=== PATIENT | male | born 2000 | race Caucasian/White ===

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

== ENCOUNTER 2020-05-14 21:01 | Emergency (ER) | payer BC, OTHER ==
--- NOTE | 2020-05-14 21:09 | EDM.PDOC ---
ED HPI GENERAL MEDICAL PROBLEM - General Chief Complaint: Abdominal Pain Stated Complaint: FEVER,CHILLS Time Seen by Provider: 05/14/20 21:07 Source of Information: Reports: Patient History Limitations: Reports: No Limitations - History of Present Illness INITIAL COMMENTS - FREE TEXT/NARRATIVE: 19-year-old male presents with nonbloody greenish watery diarrhea since morning, associated with chills, diffuse myalgia, feeling dizzy, nausea, diffuse abdominal discomfort, headache. He denies use of recent antibiotics. He ate at [employer] Saturday evening and started having symptoms the next morning. ROS: A 10-point review of systems, other than pertinent positives and negatives as stated per HPI, is otherwise negative PHYSICAL EXAM General: AOx4, GCS = 15, No distress HEENT: dry mucous membrane Neck: supple, no meningismus, no Kernig or Brudzinski Cardiac: S1S2 RRR Respiratory: CTAB, no crackles or rales, no wheezing Abdomen: Soft, nontender, no rebound or guarding, nondistended, no pulsatile mass. Back: nontender Musculoskeletal: NVI distally, no deformity Neuro: No focal deficits - Related Data Allergies Allergy/AdvReac Type Severity Reaction Status Date / Time cats Allergy Hives Uncoded 05/14/20 21:15 dogs Allergy Hives Uncoded 05/14/20 21:15 Home Meds: Home Meds Melatonin 5 mg PO BEDTIME 09/10/19 [History] Ciprofloxacin [Ciprofloxacin HCl] 500 mg PO BID #14 tab 05/14/20 [Rx] metroNIDAZOLE [Flagyl] 500 mg PO Q8H #21 tab 05/14/20 [Rx] Past Medical History - Past Health History Medical/Surgical History: Denies Medical/Surgical History HEENT History: Reports: None Cardiovascular History: Reports: None Respiratory History: Reports: None Gastrointestinal History: Reports: None Genitourinary History: Reports: None Musculoskeletal History: Reports: None Neurological History: Reports: None Psychiatric History: Reports: None Endocrine/Metabolic History: Reports: None Oncologic (Cancer) History: Reports: None Dermatologic History: Reports: None - Infectious Disease History Infectious Disease History: Reports: None - Past Surgical History HEENT Surgical History: Reports: Naso-Sinus Surgery, Tonsillectomy Social & Family History - Family History Family Medical History: Noncontributory ED ROS GENERAL - Review of Systems Review Of Systems: Comprehensive ROS is negative, except as noted in HPI. ED EXAM, GI/ABD - Physical Exam Exam: See Below (See dictation) Course - Vital Signs Last Recorded V/S: Last Vital Signs Temp 98.6 F 05/14/20 21:02 Pulse 88 05/14/20 23:24 Resp 14 05/14/20 23:24 BP 138/73 05/14/20 23:24 Pulse Ox 98 05/14/20 23:24 - Orders/Labs/Meds Orders: Active Orders 24 hr Category Date Time Status OVA & PARASITES BY IMMUNOASSAY [MREF] Stat Lab 05/14/20 21:27 Ordered Lactated Ringers [Ringers, Lactated] 1,000 ml Med 05/14/20 23:27 Active IV .BOLUS Sodium Chloride 0.9% [Saline Flush] Med 05/14/20 21:23 Active 10 ml FLUSH ASDIRECTED PRN Sodium Chloride 0.9% [Saline Flush] Med 05/14/20 21:23 Active 2.5 ml FLUSH ASDIRECTED PRN Saline Lock Insert [OM.PC] Stat Oth 05/14/20 21:23 Ordered Medication Orders Lactated Ringer's (Ringers, Lactated) 1,000 mls @ 999 mls/hr IV .BOLUS ONE Stop: 05/15/20 00:27 Last Admin: 05/14/20 23:41 Dose: 999 mls/hr Documented by: [email or web address] Sodium Chloride (Saline Flush) 10 ml FLUSH ASDIRECTED PRN PRN Reason: Keep Vein Open Sodium Chloride (Saline Flush) 2.5 ml FLUSH ASDIRECTED PRN PRN Reason: Keep Vein Open Labs: Laboratory Tests 05/14/20 05/14/20 05/14/20 Range/Units 21:20 21:20 21:20 WBC 7.47 (4.0-11.0) K/uL RBC 5.97 H (4.50-5.90) M/uL Hgb 17.2 H (13.0-17.0) g/dL Hct 49.2 (38.0-50.0) % MCV 82.4 (80.0-98.0) fL MCH 28.8 (27.0-32.0) pg MCHC 35.0 (31.0-37.0) g/dL RDW Std Deviation 38.3 (28.0-62.0) fl RDW Coeff of Senia 13 (11.0-15.0) % Plt Count 148 L (150-400) K/uL MPV 10.00 (7.40-12.00) fL Neut % (Auto) 78.4 (48.0-80.0) % Lymph % (Auto) 12.4 L (16.0-40.0) % Gaston % (Auto) 9.0 (0.0-15.0) % Eos % (Auto) 0.1 (0.0-7.0) % Baso % (Auto) 0.1 (0.0-1.5) % Neut # (Auto) 5.9 H (1.4-5.7) K/uL Lymph # (Auto) 0.9 (0.6-2.4) K/uL Gaston # (Auto) 0.7 (0.0-0.8) K/uL Eos # (Auto) 0.0 (0.0-0.7) K/uL Baso # (Auto) 0.0 (0.0-0.1) K/uL Nucleated RBC % 0.0 /100WBC Nucleated RBCs # 0 K/uL Lactate 1.7 (0.20-2.00) mmol/L Sodium 135 L (136-148) mmol/L Potassium 3.9 (3.5-5.1) mmol/L Chloride 99 (98-107) mmol/L Carbon Dioxide 25.6 (21.0-32.0) mmol/L BUN 14 (7.0-18.0) mg/dL Creatinine 1.2 (0.8-1.3) mg/dL Est Cr Clr Drug Dosing 111.90 mL/min Estimated GFR (MDRD) > 60.0 ml/min Glucose 108 H (74-106) mg/dL Calcium 9.1 (8.5-10.1) mg/dL Phosphorus 2.7 (2.6-4.7) mg/dL Magnesium 2.0 (1.8-2.4) mg/dL Total Bilirubin 2.3 H (0.2-1.0) mg/dL AST 46 H (15-37) IU/L ALT 62 (14-63) IU/L Alkaline Phosphatase 122 H (46-116) U/L Total Protein 7.4 (6.4-8.2) g/dL Albumin 3.8 (3.4-5.0) g/dL Globulin 3.6 (2.6-4.0) g/dL Albumin/Globulin Ratio 1.1 (0.9-1.6) Lipase 84 (73-393) U/L COVID-19 (JUAN) (NEGATIVE) 05/14/20 Range/Units 21:30 WBC (4.0-11.0) K/uL RBC (4.50-5.90) M/uL Hgb (13.0-17.0) g/dL Hct (38.0-50.0) % MCV (80.0-98.0) fL MCH (27.0-32.0) pg MCHC (31.0-37.0) g/dL RDW Std Deviation (28.0-62.0) fl RDW Coeff of Senia (11.0-15.0) % Plt Count (150-400) K/uL MPV (7.40-12.00) fL Neut % (Auto) (48.0-80.0) % Lymph % (Auto) (16.0-40.0) % Gaston % (Auto) (0.0-15.0) % Eos % (Auto) (0.0-7.0) % Baso % (Auto) (0.0-1.5) % Neut # (Auto) (1.4-5.7) K/uL Lymph # (Auto) (0.6-2.4) K/uL Gaston # (Auto) (0.0-0.8) K/uL Eos # (Auto) (0.0-0.7) K/uL Baso # (Auto) (0.0-0.1) K/uL Nucleated RBC % /100WBC Nucleated RBCs # K/uL Lactate (0.20-2.00) mmol/L Sodium (136-148) mmol/L Potassium (3.5-5.1) mmol/L Chloride (98-107) mmol/L Carbon Dioxide (21.0-32.0) mmol/L BUN (7.0-18.0) mg/dL Creatinine (0.8-1.3) mg/dL Est Cr Clr Drug Dosing mL/min Estimated GFR (MDRD) ml/min Glucose (74-106) mg/dL Calcium (8.5-10.1) mg/dL Phosphorus (2.6-4.7) mg/dL Magnesium (1.8-2.4) mg/dL Total Bilirubin (0.2-1.0) mg/dL AST (15-37) IU/L ALT (14-63) IU/L Alkaline Phosphatase (46-116) U/L Total Protein (6.4-8.2) g/dL Albumin (3.4-5.0) g/dL Globulin (2.6-4.0) g/dL Albumin/Globulin Ratio (0.9-1.6) Lipase (73-393) U/L COVID-19 (JUAN) NEGATIVE (NEGATIVE) Meds: Medications Generic Name Dose Route Start Last Admin Trade Name Freq PRN Reason Stop Dose Admin Lactated Ringer's 1,000 mls @ 999 mls/hr 05/14/20 23:27 05/14/20 23:41 Ringers, Lactated IV 05/15/20 00:27 999 mls/hr .BOLUS ONE Administration Sodium Chloride 10 ml 05/14/20 21:23 Saline Flush FLUSH ASDIRECTED PRN Keep Vein Open Sodium Chloride 2.5 ml 05/14/20 21:23 Saline Flush FLUSH ASDIRECTED PRN Keep Vein Open Discontinued Medications Generic Name Dose Route Start Last Admin Trade Name Freq PRN Reason Stop Dose Admin Dicyclomine HCl 20 mg 05/14/20 21:23 05/14/20 21:33 Bentyl PO 05/14/20 21:24 20 mg ONETIME ONE Administration Diphenhydramine HCl 50 mg 05/14/20 23:27 05/14/20 23:45 Benadryl IVPUSH 05/14/20 23:28 50 mg ONETIME ONE Administration Lactated Ringer's 1,000 mls @ 999 mls/hr 05/14/20 21:23 05/14/20 21:33 Ringers, Lactated IV 05/14/20 22:23 999 mls/hr .BOLUS ONE Administration Ketorolac Tromethamine 30 mg 05/14/20 23:27 05/14/20 23:42 Toradol IVPUSH 05/14/20 23:28 30 mg ONETIME ONE Administration Metoclopramide HCl 10 mg 05/14/20 23:27 05/14/20 23:43 Reglan IVPUSH 05/14/20 23:28 10 mg ONETIME ONE Administration - Re-Assessments/Exams Free Text/Narrative Re-Assessment/Exam: 05/14/20 21:27 Ordered IV fluids, Bentyl p.o. 05/14/20 23:40 Patient is still complaining of headache and body aches, will give IV fluids second liter, Reglan, Benadryl, Toradol. 05/16/20 0025 After IVF/treatments and a prolonged observation period in the ER, the patient improved clinically and is stable for discharge. He was unable to give us a stool sample. I performed a repeat examination and the patient has not demonstrated any new abnormal findings. Patient exhibits normal vital signs and has exhibited a normal gait. I advised the patient to return to the ER for reevaluation if symptoms worsened, and to follow up with their PCP within 2-3 days. MEDICAL DECISION MAKING: I reviewed the patients past medical records, lab and radiographic findings. I discussed the case with the patient. My differential diagnosis included: colitis, viral illness, COVID 19, gastroenteritis. Patient received 2 L IV fluids in the ER, his headache and myalgias improved after Reglan, Benadryl, Toradol. CT demonstrated colitis, is stable for outpatient antibiotic treatment. Departure - Departure Time of Disposition: 00:26 Disposition: Home, Self-Care 01 Condition: Good Clinical Impression: Colitis, Diarrhea - Discharge Information *PRESCRIPTION DRUG MONITORING PROGRAM REVIEWED*: Not Applicable *COPY OF PRESCRIPTION DRUG MONITORING REPORT IN PATIENT ROQUE: Not Applicable Prescriptions: Ciprofloxacin [Ciprofloxacin HCl] 500 mg PO BID #14 tab metroNIDAZOLE [Flagyl] 500 mg PO Q8H #21 tab Instructions: Diarrhea, Adult, Food Choices to Help Relieve Diarrhea, Adult, Colitis Referrals: Per Lopez MD [Primary Care Provider] - 1 Week Forms: ED Department Discharge Additional Instructions: The following information is given to patients seen in the emergency department who are being discharged to home. This information is to outline your options for follow-up care. We provide all patients seen in our emergency department with a follow-up referral. The need for follow-up, as well as the timing and circumstances, are variable depending upon the specifics of your emergency department visit. If you don't have a primary care physician on staff, we will provide you with a referral. We always advise you to contact your personal physician following an emergency department visit to inform them of the circumstance of the visit and for follow-up with them and/or the need for any referrals to a consulting specialist. The emergency department will also refer you to a specialist when appropriate. This referral assures that you have the opportunity for follow-up care with a specialist. All of these measure are taken in an effort to provide you with optimal care, which includes your follow-up. Under all circumstances we always encourage you to contact your private physician who remains a resource for coordinating your care. When calling for follow-up care, please make the office aware that this follow-up is from your recent emergency room visit. If for any reason you are refused follow-up, please contact the [facility] Emergency Department at and asked to speak to the emergency department charge nurse. Sepsis Event Note (ED) - Focused Exam Vital Signs: Vital Signs Temp Pulse Resp BP Pulse Ox 05/14/20 23:24 88 14 138/73 98 05/14/20 22:27 81 14 142/76 H 97 05/14/20 21:02 98.6 F 84 18 136/85 96 - My Orders Last 24 Hours: My Active Orders 05/14/20 21:23 Sodium Chloride 0.9% [Saline Flush] 10 ml FLUSH ASDIRECTED PRN Sodium Chloride 0.9% [Saline Flush] 2.5 ml FLUSH ASDIRECTED PRN Saline Lock Insert [OM.PC] Stat 05/14/20 21:27 OVA & PARASITES BY IMMUNOASSAY [MREF] Stat 05/14/20 23:27 Lactated Ringers [Ringers, Lactated] 1,000 ml IV .BOLUS - Assessment/Plan Last 24 Hours: My Active Orders 05/14/20 21:23 Sodium Chloride 0.9% [Saline Flush] 10 ml FLUSH ASDIRECTED PRN Sodium Chloride 0.9% [Saline Flush] 2.5 ml FLUSH ASDIRECTED PRN Saline Lock Insert [OM.PC] Stat 05/14/20 21:27 OVA & PARASITES BY IMMUNOASSAY [MREF] Stat 05/14/20 23:27 Lactated Ringers [Ringers, Lactated] 1,000 ml IV .BOLUS
[2020-05-14] MEDS ORDERED: Sodium Chloride 0.9% 2.5 ML Syringe FLUSH PRN (21:23)
[2020-05-14] MEDS ORDERED: Lactated Ringers 1,000 ML IV ONE ×2 (21:23→23:27)
[2020-05-14] MEDS ORDERED: Sodium Chloride 0.9% 10 ML Syringe FLUSH PRN (21:23)
[2020-05-14] MEDS ORDERED: Dicyclomine 10 MG Cap PO ONE (21:23)
[2020-05-14 21:46] LABS: BLOOD UREA NITROGEN,BUN 14 mg/dL (7.0-18.0); CARBON DIOXIDE,CO2 25.6 mmol/L (21.0-32.0); CHLORIDE,CL 99 mmol/L (98-107); GLUCOSE RANDOM 108 mg/dL (74-106); LIPASE 84 U/L (73-393); POTASSIUM,K 3.9 mmol/L (3.5-5.1); SODIUM,NA 135 mmol/L (136-148)
--- NOTE | 2020-05-14 22:37 | CT ---
INDICATION: Abdominal pain with nausea. COMPARISON: 05 December 2017. TECHNIQUE: Noncontrast images. FINDINGS: Lung bases are clear. Solid viscera are unremarkable with no nephrolithiasis noted. No dilatation or inflammation small bowel. Some high attenuation in the right colon presumed from ingested medication. Normal appendix with air in the lumen. Trace amount of peritoneal free fluid is abnormal for a male. Diffuse mild thickening of the colon is suggested particularly in the cecum and ascending colon. Terminal ileum does not appear significantly inflamed. Enlarged ileocolic mesenteric node has a diameter of 15 mm. IMPRESSION: Mild likely diffuse colitis. Infectious etiology favored. Inflammatory bowel disease should be assessed clinically. Small amount of peritoneal free fluid associated. Presumed reactive ileocolic lymph nodes. Please note that all CT scans at this facility use dose modulation, iterative reconstruction, and/or weight-based dosing when appropriate to reduce radiation dose to as low as reasonably achievable. Dictated by Dougie Zamorano MD @ May 17 2020 1:06PM Signed by Dr. Dougie Zamorano @ May 17 2020 1:06PM
[2020-05-14] MEDS ORDERED: diphenhydrAMINE 50 MG/ML SDV IVPUSH ONE (23:27)
[2020-05-14] MEDS ORDERED: Metoclopramide 10 MG/2 ML SDV IVPUSH ONE (23:27)
[2020-05-14] MEDS ORDERED: Ketorolac 30 MG/ML SDV IVPUSH ONE (23:27)
[2020-05-15 00:29] VITALS: BP 140/71; PULSE 97
== END 2020-05-15 00:36 | disposition home or self-care (01) ==
LOC: MW.ED 21:01
DX: K52.9 Noninfective gastroenteritis and colitis, unspecified (principal); Z20.828 Contact with and (suspected) exposure to other viral communicable diseases; Z91.048 Other nonmedicinal substance allergy status
CPT/HCPCS: 36415; 74176; 80053; 83605; 83690; 83735; 84100; 85025; 87635; 96361; 96374; 96375; 99284; A9270; J1200; J1885; J2765; J7120; 99283; U0002

== ENCOUNTER 2020-05-15 20:45 | Inpatient (IN) | payer BC ==
[2020-05-15] MEDS ORDERED: Sodium Chloride 0.9% 1,000 ML IV ONE (20:59)
[2020-05-15] MEDS ORDERED: Ondansetron 4 MG/2 ML SDV IVPUSH ONE (21:03)
[2020-05-15] MEDS ORDERED: Lactated Ringers 1,000 ML IV ONE ×2 (21:03→22:53)
[2020-05-15] MEDS ORDERED: HYDROmorphone 2 MG/ML Syringe IVPUSH ONE (21:03)
--- NOTE | 2020-05-15 21:07 | EDM.PDOC ---
ED HPI GENERAL MEDICAL PROBLEM - General Chief Complaint: Abdominal Pain Stated Complaint: ABDOMINAL PAIN, DIARRHEA Time Seen by Provider: 05/15/20 20:46 Source of Information: Reports: Patient History Limitations: Reports: No Limitations - History of Present Illness INITIAL COMMENTS - FREE TEXT/NARRATIVE: 19-year-old male who was diagnosed with colitis yesterday returns for worsening abdominal pain today. Pain is described as sharp, diffuse, cramping sensation, rated at 7/10. Pain has increased since his discharge yesterday. When he was discharged he was pain-free. He was prescribed ciprofloxacin and Flagyl, he took 1 dose today. He admits to subjective fevers today alleviated with Tylenol, chills, nausea, myalgia which has come back since his discharge yesterday. He also notes more greenish watery nonbloody diarrhea. He denies headache, neck pain, neck stiffness, sore throat, cough, chest pain. He was tested negative for COVID yesterday, his C. difficile was negative today. ROS: A 10-point review of systems, other than pertinent positives and negatives as stated per HPI, is otherwise negative PHYSICAL EXAM General: AOx4, GCS = 15, mild distress HEENT: dry mucous membrane Neck: supple, no meningismus, no Kernig or Brudzinski Cardiac: S1S2 RRR Respiratory: CTAB, no crackles or rales, no wheezing Abdomen: Soft, mild diffuse tenderness, no rebound or guarding, nondistended, no pulsatile mass. Back: nontender Musculoskeletal: NVI distally, no deformity Neuro: No focal deficits, CN 2 - 12 WNL. abdomen Pain Score (Numeric/FACES): 8 - Related Data Allergies Allergy/AdvReac Type Severity Reaction Status Date / Time cats Allergy Hives Uncoded 05/15/20 20:57 dogs Allergy Hives Uncoded 05/15/20 20:57 Home Meds: Home Meds Melatonin 5 mg PO BEDTIME 11/07/19 [History] Ciprofloxacin [Ciprofloxacin HCl] 500 mg PO BID #14 tab 05/14/20 [Rx] metroNIDAZOLE [Flagyl] 500 mg PO Q8H #21 tab 05/14/20 [Rx] Past Medical History - Past Health History Medical/Surgical History: Denies Medical/Surgical History HEENT History: Reports: None Cardiovascular History: Reports: None Respiratory History: Reports: None Gastrointestinal History: Reports: None Genitourinary History: Reports: None Musculoskeletal History: Reports: None Neurological History: Reports: None Psychiatric History: Reports: None Endocrine/Metabolic History: Reports: None Oncologic (Cancer) History: Reports: None Dermatologic History: Reports: None - Infectious Disease History Infectious Disease History: Reports: None - Past Surgical History HEENT Surgical History: Reports: Naso-Sinus Surgery, Tonsillectomy Social & Family History - Family History Family Medical History: Noncontributory - Tobacco Use Smoking Status *Q: Never Smoker Second Hand Smoke Exposure: No - Caffeine Use Caffeine Use: Reports: None - Recreational Drug Use Recreational Drug Use: No ED ROS GENERAL - Review of Systems Review Of Systems: Comprehensive ROS is negative, except as noted in HPI. ED EXAM, GI/ABD - Physical Exam Exam: See Below (see dictation) Course - Vital Signs Last Recorded V/S: Last Vital Signs Temp 97.4 F 05/15/20 20:49 Pulse 83 05/15/20 22:10 Resp 14 05/15/20 22:10 BP 131/82 05/15/20 22:10 Pulse Ox 96 05/15/20 22:10 - Orders/Labs/Meds Labs: Laboratory Tests 05/15/20 05/15/20 Range/Units 20:55 20:55 WBC 9.58 (4.0-11.0) K/uL RBC 5.71 (4.50-5.90) M/uL Hgb 16.3 (13.0-17.0) g/dL Hct 46.5 (38.0-50.0) % MCV 81.4 (80.0-98.0) fL MCH 28.5 (27.0-32.0) pg MCHC 35.1 (31.0-37.0) g/dL RDW Std Deviation 38.6 (28.0-62.0) fl RDW Coeff of Senia 13 (11.0-15.0) % Plt Count 162 (150-400) K/uL MPV 10.00 (7.40-12.00) fL Add Manual Diff YES Neutrophils % (Manual) 69 (48.0-80.0) % Band Neutrophils % 4 % Lymphocytes % (Manual) 15 L (16.0-40.0) % Monocytes % (Manual) 12 (0.0-15.0) % Nucleated RBC % 0.0 /100WBC Absolute Seg Neuts 6.6 H (1.4-5.7) Band Neutrophils # 0.4 Lymphocytes # (Manual) 1.4 (0.6-2.4) Monocytes # (Manual) 1.1 H (0.0-0.8) Nucleated RBCs # 0 K/uL Sodium 135 L (136-148) mmol/L Potassium 3.6 (3.5-5.1) mmol/L Chloride 99 (98-107) mmol/L Carbon Dioxide 23.3 (21.0-32.0) mmol/L BUN 9 (7.0-18.0) mg/dL Creatinine 1.2 (0.8-1.3) mg/dL Est Cr Clr Drug Dosing 111.90 mL/min Estimated GFR (MDRD) > 60.0 ml/min Glucose 110 H (74-106) mg/dL Calcium 8.8 (8.5-10.1) mg/dL Total Bilirubin 1.5 H (0.2-1.0) mg/dL AST 32 (15-37) IU/L ALT 48 (14-63) IU/L Alkaline Phosphatase 112 (46-116) U/L Total Protein 7.0 (6.4-8.2) g/dL Albumin 3.4 (3.4-5.0) g/dL Globulin 3.6 (2.6-4.0) g/dL Albumin/Globulin Ratio 0.9 (0.9-1.6) Lipase 407 H (73-393) U/L Meds: Medications Discontinued Medications Generic Name Dose Route Start Last Admin Trade Name Freq PRN Reason Stop Dose Admin Dicyclomine HCl 20 mg 05/15/20 22:12 05/15/20 22:15 Bentyl PO 05/15/20 22:13 20 mg ONETIME ONE Administration Dicyclomine HCl Confirm 05/15/20 22:14 Bentyl Administered 05/15/20 22:15 Dose 20 mg .ROUTE .STK-MED ONE Hydromorphone HCl 1 mg 05/15/20 21:03 05/15/20 21:14 Dilaudid IVPUSH 05/15/20 21:04 1 mg ONETIME ONE Administration Hydromorphone HCl 1 mg 05/15/20 21:59 05/15/20 22:09 Dilaudid IVPUSH 05/15/20 22:00 1 mg ONETIME ONE Administration Sodium Chloride 1,000 mls @ 999 mls/hr 05/15/20 20:59 05/15/20 22:08 Normal Saline IV 05/15/20 21:59 999 mls/hr BOLUS ONE Administration Lactated Ringer's 1,000 mls @ 999 mls/hr 05/15/20 21:03 05/15/20 21:13 Ringers, Lactated IV 05/15/20 22:03 999 mls/hr .BOLUS ONE Administration Ondansetron HCl 4 mg 05/15/20 21:03 05/15/20 21:13 Zofran IVPUSH 05/15/20 21:04 4 mg ONETIME ONE Administration - Re-Assessments/Exams Free Text/Narrative Re-Assessment/Exam: 05/15/20 21:59 Pain = 6/10 after 1 mg IV Dilaudid, will re-dose another 1 mg IV Dilaudid. 05/15/20 22:[address] Landeros, who agrees to observation / tele, she will assume care at this point. The hospitalist's documentation supersedes all other documentation on this patient with regard to any conflicts or discrepancies from this point forward. Any emergency conditions have been treated to the ability of the ED prior to admission. Departure - Departure Time of Disposition: 22:22 Disposition: Refer to Observation Condition: Good Clinical Impression: Abdominal pain, Pancreatitis, Colitis - Discharge Information *PRESCRIPTION DRUG MONITORING PROGRAM REVIEWED*: Not Applicable *COPY OF PRESCRIPTION DRUG MONITORING REPORT IN PATIENT ROQUE: Not Applicable Referrals: Per Lopez MD [Primary Care Provider] - Forms: ED Department Discharge Sepsis Event Note (ED) - Evaluation Sepsis Screening Result: No Definite Risk - Focused Exam Vital Signs: Vital Signs Temp Pulse Resp BP Pulse Ox 05/15/20 22:10 83 14 131/82 96 05/15/20 20:49 97.4 F 91 17 148/85 H 95
[2020-05-15 21:27] LABS: BLOOD UREA NITROGEN,BUN 9 mg/dL (7.0-18.0); CARBON DIOXIDE,CO2 23.3 mmol/L (21.0-32.0); CHLORIDE,CL 99 mmol/L (98-107); GLUCOSE RANDOM 110 mg/dL (74-106); LIPASE 407 U/L (73-393); POTASSIUM,K 3.6 mmol/L (3.5-5.1); SODIUM,NA 135 mmol/L (136-148)
[2020-05-15] MEDS ORDERED: HYDROmorphone 1 MG/ML Syringe IVPUSH ONE (21:59)
[2020-05-15] MEDS ORDERED: Dicyclomine 10 MG Cap PO ONE (22:12)
[2020-05-15] MEDS ORDERED: Dicyclomine 10 MG Cap ONE (22:14)
[2020-05-15] MEDS ORDERED: HYDROmorphone 2 MG/ML Syringe IVPUSH PRN (22:53)
[2020-05-15] MEDS ORDERED: Ondansetron 4 MG/2 ML SDV IVPUSH PRN (22:53)
[2020-05-15] MEDS ORDERED: Albuterol/Ipratropium 3.0-0.5 MG/3 ML Neb Soln NEB PRN (22:53)
[2020-05-15] MEDS ORDERED: Lactated Ringers 1,000 ML IV SCH (23:00)
[2020-05-16] MEDS ORDERED: metroNIDAZOLE/Normal Saline 500 MG in Premix Bag 1 BAG IV SCH ×2
[2020-05-16] MEDS: Pantoprazole 40 MG Vial IV SCH ×2 (00:08→09:19)
[2020-05-16] MEDS: Ciprofloxacin in D5W 400 MG in Premix Bag 1 BAG IV SCH ×6 (00:26→23:17)
[2020-05-16] MEDS: metroNIDAZOLE/Normal Saline 500 MG in Premix Bag 1 BAG IV SCH ×3 (01:33→16:00)
[2020-05-16] MEDS: HYDROmorphone 2 MG/ML Syringe IVPUSH PRN ×4 (02:48→09:17)
[2020-05-16] MEDS ORDERED: Acetaminophen 500 MG Tab PO ONE (04:34)
[2020-05-16] MEDS ORDERED: Dicyclomine 10 MG Cap PO ONE (06:10)
[2020-05-16 06:28] LABS: BLOOD UREA NITROGEN,BUN 8 mg/dL (7.0-18.0); CARBON DIOXIDE,CO2 25.2 mmol/L (21.0-32.0); CHLORIDE,CL 100 mmol/L (98-107); GLUCOSE RANDOM 104 mg/dL (74-106); POTASSIUM,K 3.6 mmol/L (3.5-5.1); SODIUM,NA 135 mmol/L (136-148)
[2020-05-16] MEDS ORDERED: MAGNESIUM SULFATE IV ONE ×2 (08:28→08:45)
[2020-05-16] MEDS ORDERED: POTASSIUM PHOSPHATES IV ONE ×2 (08:28→08:45)
[2020-05-16] MEDS ORDERED: SODIUM CHLORIDE IV ONE ×2 (08:28→08:45)
--- NOTE | 2020-05-16 08:30 | PCM.HP.2 ---
H&P History of Present Illness - General Date of Service: 05/16/20 Admit Problem/Dx: Admission Diagnosis/Problem Admission Diagnosis/Problem Colitis, pancreatitis, abdominal pain Source of Information: Patient History Limitations: Reports: No Limitations - History of Present Illness Initial Comments - Free Text/Narative: This 19 year old male with no significant PMH presented to the ED with complaints of worsening abdominal pain. He reports he started having green diarrhea with one episode on blood last Saturday. He reports the pain and cramping to his abdominal slowly worsened. He came to the ED and was discahrged home feeling better, but then the pain worsened again. He reports the pain is all over his abdomen and is sharp shooting and cramping in nature. He reports continued diarrhea, at its worst it was nearly 15-20 times a day. Overnight he has had 3-4 here in the hospital. He denies any further blood since one episode at home. He reports He ate out at [employer] on the , then [employer] and then [employer] on Saturday, he woke up Saturday with these symptoms. He also reports fever chills, body aches. Denies loss of taste, smell, nasal congestion, shortness of breath or chest pain. He denies any medical history, no family history of IBD or colon cancer. He reports rare alcohol use, vapes occasionally and no recreational drug use. In the ED no leukocytosis noted, bilirubin elevated slightly at 1.5. CT performed at previous ED visit which revealed portions of colon wall mild thickened, especially the cecum and mild soft tissue stranding about the cecum, suggestive of acute colitis, appendix is normal. on return visit now, lipase elevated at 407. Cdiff negative, other stool studies pending still. He was admitted secondary to acute pancreatitis and colitis abdomen Pain Score (Numeric/FACES): 6 - Related Data Allergies/Adverse Reactions: Allergies Allergy/AdvReac Type Severity Reaction Status Date / Time cats Allergy Hives Uncoded 05/15/20 20:57 dogs Allergy Hives Uncoded 05/15/20 20:57 Home Medications: Home Meds Melatonin 5 mg PO BEDTIME 09/10/19 [History] Ciprofloxacin [Ciprofloxacin HCl] 500 mg PO BID #14 tab 05/14/20 [Rx] metroNIDAZOLE [Flagyl] 500 mg PO Q8H #21 tab 05/14/20 [Rx] Past Medical History - Past Health History Medical/Surgical History: Denies Medical/Surgical History HEENT History: Reports: None Cardiovascular History: Reports: None. Denies: CAD, Hypertension Respiratory History: Reports: None. Denies: Asthma Gastrointestinal History: Reports: None. Denies: GERD, Inflammatory Bowel Disease, Irritable Bowel Syndrome, Pancreatitis, PUD Genitourinary History: Reports: None. Denies: Acute Renal Failure Musculoskeletal History: Reports: None Neurological History: Reports: None Psychiatric History: Reports: None Endocrine/Metabolic History: Reports: None Oncologic (Cancer) History: Reports: None Dermatologic History: Reports: None - Infectious Disease History Infectious Disease History: Reports: None - Past Surgical History HEENT Surgical History: Reports: Naso-Sinus Surgery, Tonsillectomy Social & Family History - Family History Family Medical History: Noncontributory - Tobacco Use Smoking Status *Q: Light Tobacco Smoker Tobacco Use Within Last Twelve Months: Vaping Second Hand Smoke Exposure: No - Caffeine Use Caffeine Use: Reports: None - Alcohol Use Alcohol Use History: Yes Alcohol Use Frequency: Monthly, Rarely - Recreational Drug Use Recreational Drug Use: No - Living Situation & Occupation Living situation: Reports: with Family H&P Review of Systems - Review of Systems: Review Of Systems: See Below General: Reports: Fever, Chills, Malaise HEENT: Reports: No Symptoms. Denies: Ear Pain, Eye Pain, Headaches, Sinus Congestion, Sore Throat Pulmonary: Reports: No Symptoms. Denies: Shortness of Breath, Cough, Sputum Cardiovascular: Reports: No Symptoms. Denies: Chest Pain Gastrointestinal: Reports: Abdominal Pain, Bloody Stool (on episode when this started last week), Diarrhea, Decreased Appetite, Nausea Genitourinary: Reports: No Symptoms. Denies: Dysuria, Frequency Musculoskeletal: Reports: No Symptoms Skin: Reports: No Symptoms Psychiatric: Reports: No Symptoms Neurological: Reports: No Symptoms Hematologic/Lymphatic: Reports: No Symptoms Immunologic: Reports: No Symptoms Exam - Exam Exam: See Below - Vital Signs Vital Signs: Last Vital Signs Temp 99.4 F 05/16/20 04:36 Pulse 88 05/16/20 04:36 Resp 15 05/16/20 04:36 BP 132/58 L 05/16/20 04:36 Pulse Ox 95 05/16/20 04:36 Weight: 78.8 kg - Exam General: Alert, Oriented, Cooperative HEENT: Conjunctiva Clear, Mucosa Moist & [place], Posterior Pharynx Clear Neck: Supple, Trachea Midline Lungs: Clear to Auscultation, Normal Respiratory Effort Cardiovascular: Regular Rate, Regular Rhythm, Normal S1, Normal S2. No: Tachycardia, Systolic Murmur GI/Abdominal Exam: Normal Bowel Sounds, Soft, Tender (throughout) Back Exam: Normal Inspection, Full Range of Motion Extremities: Normal Inspection, Normal Range of Motion, Non-Tender Neuro Extensive - Mental Status: Alert, Oriented x3 Psychiatric: Alert, Normal Affect, Normal Mood - Patient Data Lab Results Last 24 hrs: Laboratory Results - last 24 hr 05/15/20 05/15/20 05/16/20 Range/Units 20:55 20:55 05:12 WBC 9.58 10.40 (4.0-11.0) K/uL RBC 5.71 5.29 (4.50-5.90) M/uL Hgb 16.3 14.9 (13.0-17.0) g/dL Hct 46.5 43.5 (38.0-50.0) % MCV 81.4 82.2 (80.0-98.0) fL MCH 28.5 28.2 (27.0-32.0) pg MCHC 35.1 34.3 (31.0-37.0) g/dL RDW Std Deviation 38.6 38.9 (28.0-62.0) fl RDW Coeff of [place] 13 13 (11.0-15.0) % Plt Count 162 177 (150-400) K/uL MPV 10.00 10.50 (7.40-12.00) fL Neut % (Auto) 66.5 (48.0-80.0) % Lymph % (Auto) 19.2 (16.0-40.0) % [place] % (Auto) 13.9 (0.0-15.0) % Eos % (Auto) 0.2 (0.0-7.0) % Baso % (Auto) 0.2 (0.0-1.5) % Neut # (Auto) 6.9 H (1.4-5.7) K/uL Lymph # (Auto) 2.0 (0.6-2.4) K/uL [place] # (Auto) 1.5 H (0.0-0.8) K/uL Eos # (Auto) 0.0 (0.0-0.7) K/uL Baso # (Auto) 0.0 (0.0-0.1) K/uL Add Manual Diff YES Neutrophils % (Manual) 69 (48.0-80.0) % Band Neutrophils % 4 % Lymphocytes % (Manual) 15 L (16.0-40.0) % Monocytes % (Manual) 12 (0.0-15.0) % Nucleated RBC % 0.0 0.0 /100WBC Absolute Seg Neuts 6.6 H (1.4-5.7) Band Neutrophils # 0.4 Lymphocytes # (Manual) 1.4 (0.6-2.4) Monocytes # (Manual) 1.1 H (0.0-0.8) Nucleated RBCs # 0 0 K/uL Sodium 135 L (136-148) mmol/L Potassium 3.6 (3.5-5.1) mmol/L Chloride 99 (98-107) mmol/L Carbon Dioxide 23.3 (21.0-32.0) mmol/L BUN 9 (7.0-18.0) mg/dL Creatinine 1.2 (0.8-1.3) mg/dL Est Cr Clr Drug Dosing 111.90 mL/min Estimated GFR (MDRD) > 60.0 ml/min Glucose 110 H (74-106) mg/dL Calcium 8.8 (8.5-10.1) mg/dL Phosphorus (2.6-4.7) mg/dL Magnesium (1.8-2.4) mg/dL Total Bilirubin 1.5 H (0.2-1.0) mg/dL AST 32 (15-37) IU/L ALT 48 (14-63) IU/L Alkaline Phosphatase 112 (46-116) U/L Total Protein 7.0 (6.4-8.2) g/dL Albumin 3.4 (3.4-5.0) g/dL Globulin 3.6 (2.6-4.0) g/dL Albumin/Globulin Ratio 0.9 (0.9-1.6) Lipase 407 H (73-393) U/L 05/16/20 05/16/20 Range/Units 05:12 05:12 WBC (4.0-11.0) K/uL RBC (4.50-5.90) M/uL Hgb (13.0-17.0) g/dL Hct (38.0-50.0) % MCV (80.0-98.0) fL MCH (27.0-32.0) pg MCHC (31.0-37.0) g/dL RDW Std Deviation (28.0-62.0) fl RDW Coeff of [place] (11.0-15.0) % Plt Count (150-400) K/uL MPV (7.40-12.00) fL Neut % (Auto) (48.0-80.0) % Lymph % (Auto) (16.0-40.0) % [place] % (Auto) (0.0-15.0) % Eos % (Auto) (0.0-7.0) % Baso % (Auto) (0.0-1.5) % Neut # (Auto) (1.4-5.7) K/uL Lymph # (Auto) (0.6-2.4) K/uL [place] # (Auto) (0.0-0.8) K/uL Eos # (Auto) (0.0-0.7) K/uL Baso # (Auto) (0.0-0.1) K/uL Add Manual Diff Neutrophils % (Manual) (48.0-80.0) % Band Neutrophils % % Lymphocytes % (Manual) (16.0-40.0) % Monocytes % (Manual) (0.0-15.0) % Nucleated RBC % /100WBC Absolute Seg Neuts (1.4-5.7) Band Neutrophils # Lymphocytes # (Manual) (0.6-2.4) Monocytes # (Manual) (0.0-0.8) Nucleated RBCs # K/uL Sodium 135 L (136-148) mmol/L Potassium 3.6 (3.5-5.1) mmol/L Chloride 100 (98-107) mmol/L Carbon Dioxide 25.2 (21.0-32.0) mmol/L BUN 8 (7.0-18.0) mg/dL Creatinine 1.0 (0.8-1.3) mg/dL Est Cr Clr Drug Dosing 132.43 mL/min Estimated GFR (MDRD) > 60.0 ml/min Glucose 104 (74-106) mg/dL Calcium 8.4 L (8.5-10.1) mg/dL Phosphorus 2.1 L (2.6-4.7) mg/dL Magnesium 1.7 L (1.8-2.4) mg/dL Total Bilirubin 1.2 H (0.2-1.0) mg/dL AST 26 (15-37) IU/L ALT 37 (14-63) IU/L Alkaline Phosphatase 102 (46-116) U/L Total Protein 6.2 L (6.4-8.2) g/dL Albumin 2.9 L (3.4-5.0) g/dL Globulin 3.3 (2.6-4.0) g/dL Albumin/Globulin Ratio 0.9 (0.9-1.6) Lipase 726 H (73-393) U/L Result Diagrams: 05/16/20 05:12 05/16/20 05:12 Sepsis Event Note - Evaluation Sepsis Screening Result: No Definite Risk - Focused Exam Vital Signs: Vital Signs Temp Pulse Resp BP Pulse Ox Pulse Ox 05/16/20 04:36 99.4 F 88 15 132/58 L 95 05/16/20 01:09 96 05/16/20 01:08 96 05/15/20 23:23 99.3 F 89 15 133/71 96 05/15/20 22:10 83 14 131/82 96 05/15/20 20:49 97.4 F 91 17 148/85 H 95 Date Exam was Performed: 05/16/20 Time Exam was Performed: 11:43 - Problem List (1) Abdominal pain SNOMED Code(s): 12362754 ICD Code: R10.9 - UNSPECIFIED ABDOMINAL PAIN Status: Acute Current Visit: Yes (2) Colitis SNOMED Code(s): 96437256 ICD Code: K52.9 - NONINFECTIVE GASTROENTERITIS AND COLITIS, UNSPECIFIED Status: Acute Current Visit: Yes (3) Pancreatitis SNOMED Code(s): 36506453 ICD Code: K85.90 - ACUTE PANCREATITIS WITHOUT NECROSIS OR INFECTION, UNSP Status: Acute Current Visit: Yes (4) Diarrhea SNOMED Code(s): 91161765 ICD Code: R19.7 - DIARRHEA, UNSPECIFIED Status: Acute Current Visit: No Problem List Initiated/Reviewed/Updated: Yes Orders Last 24hrs: Active Orders 24 hr Category Date Time Status Admission Status [Patient Status] [ADT] Stat ADT 05/15/20 22:22 Active Ambulate [RC] ASDIRECTED Care 05/15/20 22:53 Active Antiembolic Devices [RC] PER UNIT ROUTINE Care 05/15/20 22:54 Active Oxygen Therapy [RC] PRN Care 05/15/20 22:53 Active RT Aerosol Therapy [RC] ASDIRECTED Care 05/15/20 22:56 Active Telemetry Monitoring [Cardiac Monitoring] [RC] . Care 05/15/20 22:36 Active DIRECTED VTE/DVT Education [RC] PER UNIT ROUTINE Care 05/15/20 22:53 Active Vital Signs [RC] Q4H Care 05/15/20 22:53 Active Nothing per Oral Now Diet [DIET] Diet 05/15/20 Dinner Active Abdomen Ltd [US] Routine Exams 05/16/20 08:00 Ordered LIPID PANEL [CHEM] Routine Lab 05/16/20 08:29 Ordered Albuterol/Ipratropium [DuoNeb 3.0-0.5 MG/3 ML] Med 05/15/20 22:53 Active 3 ml NEB Q4HRRT PRN Ciprofloxacin in D5W [Cipro in D5W 400 MG/200 ML] 400 Med 05/15/20 23:00 Active mg Premix Bag 1 bag IV Q12H HYDROmorphone [Dilaudid] Med 05/16/20 00:15 Active 0.5 mg IVPUSH Q2H PRN Lactated Ringers [Ringers, Lactated] 1,000 ml Med 05/16/20 08:30 Ordered IV Q5H Magnesium Sulfate [Magnesium Sulfate 50%] 2 gm Med 05/16/20 08:28 Ordered Potassium Phosphates 20 mmole Sodium Chloride 0.9% [Normal Saline] 1,000 ml IV ONETIME Ondansetron [Zofran] Med 05/15/20 22:53 Active 4 mg IVPUSH Q4H PRN Pantoprazole [ProTONIX IV] Med 05/15/20 23:00 Active 40 mg IV DAILY metroNIDAZOLE/Normal Saline [Flagyl 500 MG in NS 100 ML Med 05/16/20 00:15 Active ] 500 mg Premix Bag 1 bag IV Q8H Sequential Compression Device [OM.PC] Per Unit Routine Oth 05/15/20 22:54 Ordered Resuscitation Status Routine Resus Stat 05/15/20 22:53 Ordered Medication Orders Albuterol/Ipratropium (Duoneb 3.0-0.5 Mg/3 Ml) 3 ml NEB Q4HRRT PRN PRN Reason: Shortness Of Breath/wheezing Hydromorphone HCl (Dilaudid) 0.5 mg IVPUSH Q2H PRN PRN Reason: Pain (severe 7-10) Last Admin: 05/16/20 07:08 Dose: 0.5 mg Documented by: Admin: 05/16/20 04:57 Dose: 0.5 mg Documented by: Admin: 05/16/20 02:48 Dose: 0.5 mg Documented by: PASCALE Ciprofloxacin/Dextrose 400 mg/ (Premix) 200 mls @ 200 mls/hr IV Q12H [facility] Last Admin: 05/16/20 00:26 Dose: 200 mls/hr Documented by: PASCALE Metronidazole 500 mg/ Premix 100 mls @ 100 mls/hr IV Q8H [facility] Last Admin: 05/16/20 01:33 Dose: 100 mls/hr Documented by: PASCALE Lactated Ringer's (Ringers, Lactated) 1,000 mls @ 200 mls/hr IV Q5H [facility] Magnesium Sulfate 2 gm/Potassium Phosphate 20 mmole/Sodium Chloride 1,010.6667 mls @ 150 mls/hr IV ONETIME ONE Stop: 05/16/20 15:12 Ondansetron HCl (Zofran) 4 mg IVPUSH Q4H PRN PRN Reason: Nausea/Vomiting Pantoprazole Sodium (Protonix Iv) 40 mg IV DAILY [facility] Last Admin: 05/16/20 00:08 Dose: 40 mg Documented by: PASCALE Assessment/Plan Comment:: This 19 year old male admitted with acute pancreatitis likely secondary to acute colitis 1. Colitis - Continue Flagyl and Ciprofloxacin - ESR normal CRP - Pending stool cultures, Cdiff negative - Continue NPO as pain continues - Stools have slowed down - Dilaudid for pain PRN - Zofran PRN nausea 2. Pancreatitis - Likely related to colitis - Increase IVFs to 200 mls/hr today and monitor - Lipase increased to 726 VTE prophylaxis: SCDs and ambulation Dispo: make inpatient as he will need greater than 2 midnight stay - Mortality Measure Prognosis:: Good
[2020-05-16] MEDS: Lactated Ringers 1,000 ML IV SCH ×4 (09:28→20:49)
--- NOTE | 2020-05-16 09:34 | US ---
Limited abdominal ultrasound: Multiple real-time images of the upper right abdomen were obtained. Liver contains no focal parenchymal abnormality. Visualized portions of the pancreas appear within normal limits. Right kidney shows no hydronephrosis or mass. Echogenic area is noted next to the kidney most likely representing a small amount of focal fat. Right kidney has a length of 11.4 cm. Gallbladder contains no shadowing gallstones. No gallbladder wall thickening, pericholecystic fluid or biliary duct dilatation is seen. Aorta shows no aneurysm. No abnormality is identified on right upper quadrant abdominal ultrasound. Diagnostic code #1 This report was dictated in MDT
[2020-05-16] MEDS ORDERED: HYDROmorphone 2 MG/ML Syringe IVPUSH PRN ×2 (09:37→12:04)
[2020-05-16] MEDS ORDERED: HYDROmorphone 2 MG/ML Syringe IVPUSH ONE (09:37)
[2020-05-16] MEDS ORDERED: Promethazine 25 MG/ML SDV IM PRN ×2 (12:03→15:29)
[2020-05-16] MEDS ORDERED: HYDROmorphone 1 MG/ML Syringe IVPUSH PRN (14:46)
[2020-05-16] MEDS ORDERED: Ketorolac 30 MG/ML SDV IVPUSH ONE (15:24)
[2020-05-16] MEDS ORDERED: Ibuprofen 200 MG Tab PO ONE (23:00)
[2020-05-17] MEDS: Lactated Ringers 1,000 ML IV SCH ×5 (00:38→19:12)
[2020-05-17] MEDS: metroNIDAZOLE/Normal Saline 500 MG in Premix Bag 1 BAG IV SCH ×4 (00:56→23:15)
[2020-05-17] MEDS ORDERED: LORazepam 2 MG/ML SDV IVPUSH ONE ×2 (02:24→22:38)
[2020-05-17 06:23] LABS: BLOOD UREA NITROGEN,BUN 7 mg/dL (7.0-18.0); CARBON DIOXIDE,CO2 27.3 mmol/L (21.0-32.0); CHLORIDE,CL 104 mmol/L (98-107); GLUCOSE RANDOM 94 mg/dL (74-106); SODIUM,NA 139 mmol/L (136-148)
--- NOTE | 2020-05-17 08:13 | PCM.PN ---
- General Info Date of Service: 05/17/20 Admission Dx/Problem (Free Text): Admission Diagnosis/Problem Admission Diagnosis/Problem Colitis, pancreatitis, abdominal pain Subjective Update: Improvement from yesterday. Less pain medication used, nausea has improved. Nichole rrhea improved as well. Mild elevation in temp last night 100.8. Functional Status: Reports: Pain Controlled, Ambulating, Urinating - Review of Systems General: Reports: Weakness, Malaise HEENT: Reports: Headaches Pulmonary: Reports: No Symptoms. Denies: Shortness of Breath Cardiovascular: Reports: No Symptoms. Denies: Chest Pain Gastrointestinal: Reports: Abdominal Pain (much improved, less cramping.). Denies: Nausea, Vomiting Genitourinary: Reports: No Symptoms. Denies: Dysuria, Frequency Musculoskeletal: Reports: Neck Pain Skin: Reports: No Symptoms Neurological: Reports: No Symptoms Psychiatric: Reports: No Symptoms - Patient Data Vitals - Most Recent: Last Vital Signs Temp 97.6 F 05/17/20 04:00 Pulse 74 05/17/20 04:00 Resp 18 05/17/20 04:00 BP 137/69 05/17/20 04:00 Pulse Ox 95 05/17/20 04:00 Weight - Most Recent: 78.8 kg I&O - Last 24 Hours: Intake & Output 05/16/20 05/17/20 05/17/20 22:59 06:59 14:59 Intake Total 1240 1610 Output Total 1050 1685 Balance 190 -75 Lab Results Last 24 Hours: Laboratory Results - last 24 hr 05/16/20 05/16/20 05/16/20 Range/Units 05:12 05:12 05:12 WBC (4.0-11.0) K/uL RBC (4.50-5.90) M/uL Hgb (13.0-17.0) g/dL Hct (38.0-50.0) % MCV (80.0-98.0) fL MCH (27.0-32.0) pg MCHC (31.0-37.0) g/dL RDW Std Deviation (28.0-62.0) fl RDW Coeff of Senia (11.0-15.0) % Plt Count (150-400) K/uL MPV (7.40-12.00) fL Neut % (Auto) (48.0-80.0) % Lymph % (Auto) (16.0-40.0) % [place] % (Auto) (0.0-15.0) % Eos % (Auto) (0.0-7.0) % Baso % (Auto) (0.0-1.5) % Neut # (Auto) (1.4-5.7) K/uL Lymph # (Auto) (0.6-2.4) K/uL [place] # (Auto) (0.0-0.8) K/uL Eos # (Auto) (0.0-0.7) K/uL Baso # (Auto) (0.0-0.1) K/uL Nucleated RBC % /100WBC Nucleated RBCs # K/uL ESR 5 (0-14) mm/hr Sodium (136-148) mmol/L Potassium (3.5-5.1) mmol/L Chloride (98-107) mmol/L Carbon Dioxide (21.0-32.0) mmol/L BUN (7.0-18.0) mg/dL Creatinine (0.8-1.3) mg/dL Est Cr Clr Drug Dosing mL/min Estimated GFR (MDRD) ml/min Glucose (74-106) mg/dL Calcium (8.5-10.1) mg/dL Phosphorus (2.6-4.7) mg/dL Magnesium (1.8-2.4) mg/dL Total Bilirubin (0.2-1.0) mg/dL AST (15-37) IU/L ALT (14-63) IU/L Alkaline Phosphatase (46-116) U/L C-Reactive Protein 29.70 H (0.00-0.90) mg/dL Total Protein (6.4-8.2) g/dL Albumin (3.4-5.0) g/dL Globulin (2.6-4.0) g/dL Albumin/Globulin Ratio (0.9-1.6) Triglycerides 95 (0-200) mg/dL Cholesterol 75 (50-200) mg/dL LDL Cholesterol, Calc 37 L (60-180) mg/dL VLDL Cholesterol 19 (5-55) mg/dL HDL Cholesterol 19 L (40-60) mg/dL Cholesterol/HDL Ratio 3.9 (3.3-6.0) 07/14/20 07/14/20 Range/Units 05:45 05:45 WBC 10.51 (4.0-11.0) K/uL RBC 4.72 (4.50-5.90) M/uL Hgb 13.3 (13.0-17.0) g/dL Hct 38.7 (38.0-50.0) % MCV 82.0 (80.0-98.0) fL MCH 28.2 (27.0-32.0) pg MCHC 34.4 (31.0-37.0) g/dL RDW Std Deviation 39.1 (28.0-62.0) fl RDW Coeff of Senia 13 (11.0-15.0) % Plt Count 160 (150-400) K/uL MPV 9.80 (7.40-12.00) fL Neut % (Auto) 69.6 (48.0-80.0) % Lymph % (Auto) 17.0 (16.0-40.0) % [place] % (Auto) 11.7 (0.0-15.0) % Eos % (Auto) 1.5 (0.0-7.0) % Baso % (Auto) 0.2 (0.0-1.5) % Neut # (Auto) 7.3 H (1.4-5.7) K/uL Lymph # (Auto) 1.8 (0.6-2.4) K/uL [place] # (Auto) 1.2 H (0.0-0.8) K/uL Eos # (Auto) 0.2 (0.0-0.7) K/uL Baso # (Auto) 0.0 (0.0-0.1) K/uL Nucleated RBC % 0.0 /100WBC Nucleated RBCs # 0 K/uL ESR (0-14) mm/hr Sodium 139 (136-148) mmol/L Potassium 4.0 (3.5-5.1) mmol/L Chloride 104 (98-107) mmol/L Carbon Dioxide 27.3 (21.0-32.0) mmol/L BUN 7 (7.0-18.0) mg/dL Creatinine 0.8 (0.8-1.3) mg/dL Est Cr Clr Drug Dosing 165.53 mL/min Estimated GFR (MDRD) > 60.0 ml/min Glucose 94 (74-106) mg/dL Calcium 8.2 L (8.5-10.1) mg/dL Phosphorus 2.8 (2.6-4.7) mg/dL Magnesium 1.9 (1.8-2.4) mg/dL Total Bilirubin 0.7 (0.2-1.0) mg/dL AST 25 (15-37) IU/L ALT 29 (14-63) IU/L Alkaline Phosphatase 87 (46-116) U/L C-Reactive Protein (0.00-0.90) mg/dL Total Protein 5.6 L (6.4-8.2) g/dL Albumin 2.5 L (3.4-5.0) g/dL Globulin 3.1 (2.6-4.0) g/dL Albumin/Globulin Ratio 0.8 L (0.9-1.6) Triglycerides (0-200) mg/dL Cholesterol (50-200) mg/dL LDL Cholesterol, Calc (60-180) mg/dL VLDL Cholesterol (5-55) mg/dL HDL Cholesterol (40-60) mg/dL Cholesterol/HDL Ratio (3.3-6.0) Zaheer Results Last 24 Hours: Microbiology 05/17/20 00:34 Anaerobic Blood Culture - Final Blood - Venous - Lab Draw Med Orders - Current: Current Medications Albuterol/Ipratropium (Duoneb 3.0-0.5 Mg/3 Ml) 3 ml NEB Q4HRRT PRN PRN Reason: Shortness Of Breath/wheezing Hydromorphone HCl (Dilaudid) 0.5 mg IVPUSH Q2H PRN PRN Reason: Pain (severe 7-10) Last Admin: 05/16/20 21:10 Dose: 0.5 mg Documented by: Ciprofloxacin/Dextrose 400 mg/ (Premix) 200 mls @ 200 mls/hr IV Q12H WAN Last Admin: 05/16/20 23:17 Dose: 200 mls/hr Documented by: Metronidazole 500 mg/ Premix 100 mls @ 100 mls/hr IV Q8H WAN Last Admin: 05/17/20 00:56 Dose: 100 mls/hr Documented by: Lactated Ringer's (Ringers, Lactated) 1,000 mls @ 200 mls/hr IV Q5H [facility] Last Admin: 05/17/20 03:48 Dose: 200 mls/hr Documented by: Ondansetron HCl (Zofran) 4 mg IVPUSH Q4H PRN PRN Reason: Nausea/Vomiting Last Admin: 05/16/20 11:11 Dose: 4 mg Documented by: Pantoprazole Sodium (Protonix Iv) 40 mg IV DAILY [facility] Last Admin: 05/16/20 09:19 Dose: 40 mg Documented by: Promethazine HCl (Phenergan) 25 mg IM Q6H PRN PRN Reason: Nausea Last Admin: 05/16/20 21:03 Dose: 25 mg Documented by: Discontinued Medications Acetaminophen (Tylenol Extra Strength) 500 mg PO ONETIME ONE Stop: 05/16/20 04:35 Last Admin: 05/16/20 04:46 Dose: 500 mg Documented by: Dicyclomine HCl (Bentyl) 20 mg PO ONETIME ONE Stop: 05/15/20 22:13 Last Admin: 05/15/20 22:15 Dose: 20 mg Documented by: Dicyclomine HCl (Bentyl) Confirm Administered Dose 20 mg .ROUTE .STK-MED ONE Stop: 05/15/20 22:15 Last Admin: 05/15/20 22:22 Dose: Not Given Documented by: Dicyclomine HCl (Bentyl) 20 mg PO ONETIME ONE Stop: 05/16/20 06:11 Last Admin: 05/16/20 06:20 Dose: 20 mg Documented by: Hydromorphone HCl (Dilaudid) 1 mg IVPUSH ONETIME ONE Stop: 05/15/20 21:04 Last Admin: 05/15/20 21:14 Dose: 1 mg Documented by: Hydromorphone HCl (Dilaudid) 1 mg IVPUSH ONETIME ONE Stop: 05/15/20 22:00 Last Admin: 05/15/20 22:09 Dose: 1 mg Documented by: Hydromorphone HCl (Dilaudid) 0.5 mg IVPUSH Q4H PRN PRN Reason: Pain (severe 7-10) Stop: 05/16/20 00:14 Last Admin: 05/16/20 00:01 Dose: 0.5 mg Documented by: Hydromorphone HCl (Dilaudid) 0.5 mg IVPUSH Q2H PRN PRN Reason: Pain (severe 7-10) Last Admin: 05/16/20 09:17 Dose: 0.5 mg Documented by: Hydromorphone HCl (Dilaudid) 1 mg IVPUSH Q2H PRN PRN Reason: Pain (severe 7-10) Hydromorphone HCl (Dilaudid) 0.5 mg IVPUSH ONETIME ONE Stop: 05/16/20 09:38 Last Admin: 05/16/20 10:04 Dose: 0.5 mg Documented by: Hydromorphone HCl (Dilaudid) 0.5 mg IVPUSH Q2H PRN PRN Reason: Pain (severe 7-10) Sodium Chloride (Normal Saline) 1,000 mls @ 999 mls/hr IV BOLUS ONE Stop: 05/15/20 21:59 Last Admin: 05/15/20 22:08 Dose: 999 mls/hr Documented by: Lactated Ringer's (Ringers, Lactated) 1,000 mls @ 999 mls/hr IV .BOLUS ONE Stop: 05/15/20 22:03 Last Admin: 05/15/20 21:13 Dose: 999 mls/hr Documented by: Lactated Ringer's (Ringers, Lactated) 1,000 mls @ 125 mls/hr IV ASDIRECTED [facility] Last Admin: 05/16/20 02:51 Dose: 125 mls/hr Documented by: Lactated Ringer's (Ringers, Lactated) 1,000 mls @ 999 mls/hr IV BOLUS ONE Stop: 05/15/20 23:53 Last Admin: 05/15/20 23:43 Dose: 999 mls/hr Documented by: Metronidazole 500 mg/ Premix 100 mls @ 100 mls/hr IV QID [facility] Magnesium Sulfate 2 gm/Potassium Phosphate 20 mmole/Sodium Chloride 1,010.6667 mls @ 150 mls/hr IV ONETIME ONE Stop: 05/16/20 15:29 Last Admin: 05/16/20 10:39 Dose: 150 mls/hr Documented by: Ibuprofen (Motrin) 200 mg PO ONETIME ONE Stop: 05/16/20 23:01 Last Admin: 05/16/20 23:17 Dose: 200 mg Documented by: Ketorolac Tromethamine (Toradol) 30 mg IVPUSH ONETIME ONE Stop: 05/16/20 15:25 Last Admin: 05/16/20 15:40 Dose: 30 mg Documented by: Lorazepam (Ativan) 0.5 mg IVPUSH ONETIME ONE Stop: 05/17/20 02:25 Last Admin: 05/17/20 03:35 Dose: 0.5 mg Documented by: Ondansetron HCl (Zofran) 4 mg IVPUSH ONETIME ONE Stop: 05/15/20 21:04 Last Admin: 05/15/20 21:13 Dose: 4 mg Documented by: Promethazine HCl (Phenergan) 12.5 mg IM Q6H PRN PRN Reason: Nausea Last Admin: 05/16/20 12:55 Dose: 12.5 mg Documented by: - Exam General: Alert, Oriented HEENT: Pupils Equal, Mucous Membr. Moist/[place] Neck: Supple, Other (no nuchal rigidity) Lungs: Clear to Auscultation, Normal Respiratory Effort Cardiovascular: Regular Rate, Regular Rhythm GI/Abdominal Exam: Normal Bowel Sounds, Soft, No Distention, Tender (to LLQ, much improved from yesterday) Extremities: Normal Inspection, Normal Range of Motion, Non-Tender, No Pedal Edema Neurological: No New Focal Deficit Psy/Mental Status: Alert, Normal Affect, Normal Mood Sepsis Event Note - Evaluation Sepsis Screening Result: No Definite Risk - Focused Exam Vital Signs: Vital Signs Temp Temp Pulse Resp BP Pulse Ox Pulse Ox 05/17/20 04:00 97.6 F 74 18 137/69 95 05/17/20 01:00 95 05/17/20 00:40 100.5 F 05/17/20 00:17 100.5 F 05/16/20 23:32 100.8 F H 88 19 123/66 95 05/16/20 21:20 97.2 F Date Exam was Performed: 05/17/20 Time Exam was Performed: 12:52 - Problem List & Annotations (1) Abdominal pain SNOMED Code(s): 54336130 Code(s): R10.9 - UNSPECIFIED ABDOMINAL PAIN Status: Acute Current Visit: Yes (2) Colitis SNOMED Code(s): 18862799 Code(s): K52.9 - NONINFECTIVE GASTROENTERITIS AND COLITIS, UNSPECIFIED Status: Acute Current Visit: Yes (3) Pancreatitis SNOMED Code(s): 05327949 Code(s): K85.90 - ACUTE PANCREATITIS WITHOUT NECROSIS OR INFECTION, UNSP Status: Acute Current Visit: Yes (4) Diarrhea SNOMED Code(s): 16400255 Code(s): R19.7 - DIARRHEA, UNSPECIFIED Status: Acute Current Visit: No - Problem List Review Problem List Initiated/Reviewed/Updated: Yes - My Orders Last 24 Hours: My Active Orders 05/16/20 08:30 Lactated Ringers [Ringers, Lactated] 1,000 ml IV Q5H 05/16/20 11:31 Patient Status [ADT] Stat 05/16/20 14:46 HYDROmorphone [Dilaudid] 0.5 mg IVPUSH Q2H PRN 05/16/20 15:29 Promethazine [Phenergan] 25 mg IM Q6H PRN 05/17/20 08:11 LIPASE [CHEM] Routine 05/18/20 05:11 CBC WITH AUTO DIFF [HEME] AM COMPREHENSIVE METABOLIC PN,CMP [CHEM] AM MG [MAGNESIUM] [CHEM] AM PHOSPHORUS [CHEM] AM 05/19/20 05:11 CBC WITH AUTO DIFF [HEME] AM COMPREHENSIVE METABOLIC PN,CMP [CHEM] AM MG [MAGNESIUM] [CHEM] AM PHOSPHORUS [CHEM] AM - Plan Plan:: This 19 year old male admitted with acute pancreatitis likely secondary to acute colitis 1. Colitis - Continue Flagyl and Ciprofloxacin - Pending stool cultures, Shiga negative, Giardia negative, Cdiff negative - Trial CL diet today - Stools continue to improve - DC Dilaudid for pain PRN, start Toradol and monitor pain relief. - Zofran PRN nausea 2. Pancreatitis - Likely related to colitis - IVFs at 200 mls/hr - Lipase improved today VTE prophylaxis: SCDs and ambulation Dispo: 1-2 days
[2020-05-17] MEDS: Pantoprazole 40 MG in Sodium Chloride 0.9% 10 ML IV SCH (10:15)
[2020-05-17] MEDS: Pantoprazole 40 MG Vial IV SCH (11:20)
[2020-05-17] MEDS: Ciprofloxacin in D5W 400 MG in Premix Bag 1 BAG IV SCH ×4 (11:21→22:05)
[2020-05-17] MEDS ORDERED: Ketorolac 30 MG/ML SDV IVPUSH SCH (11:45)
[2020-05-17] MEDS: Ketorolac 30 MG/ML SDV IVPUSH PRN ×2 (12:23→21:25)
[2020-05-18] MEDS: Lactated Ringers 1,000 ML IV SCH ×2 (02:06→07:19)
[2020-05-18 06:26] LABS: BLOOD UREA NITROGEN,BUN 6 mg/dL (7.0-18.0); CARBON DIOXIDE,CO2 26.5 mmol/L (21.0-32.0); CHLORIDE,CL 105 mmol/L (98-107); GLUCOSE RANDOM 92 mg/dL (74-106); POTASSIUM,K 3.9 mmol/L (3.5-5.1); SODIUM,NA 141 mmol/L (136-148)
[2020-05-18] MEDS: Pantoprazole 40 MG in Sodium Chloride 0.9% 10 ML IV SCH (08:51)
[2020-05-18] MEDS: metroNIDAZOLE/Normal Saline 500 MG in Premix Bag 1 BAG IV SCH (08:55)
[2020-05-18] MEDS ORDERED: Ciprofloxacin 500 MG Tab PO SCH (11:15)
[2020-05-18 11:25] VITALS: BP 146/87; PULSE 68
--- NOTE | 2020-05-18 12:10 | PCM.DCSUM1 ---
Discharge Summary - Hospital Course Brief History: This 19 year old male with no significant PMH presented to the ED with complaints of worsening abdominal pain. He reports he started having green diarrhea with one episode on blood last Saturday. He reports the pain and cramping to his abdominal slowly worsened. He came to the ED and was discahrged home feeling better, but then the pain worsened again. He reports the pain is all over his abdomen and is sharp shooting and cramping in nature. He reports continued diarrhea, at its worst it was nearly 15-20 times a day. Overnight he has had 3-4 here in the hospital. He denies any further blood since one episode at home. He reports He ate out at [employer] on the , then [employer] and then [employer] on Saturday, he woke up Saturday with these symptoms. He also reports fever chills, body aches. Denies loss of taste, smell, nasal congestion, shortness of breath or chest pain. He denies any medical history, no family history of IBD or colon cancer. He reports rare alcohol use, vapes occasionally and no recreational drug use. In the ED no leukocytosis noted, bilirubin elevated slightly at 1.5. CT performed at previous ED visit which revealed portions of colon wall mild thickened, especially the cecum and mild soft tissue stranding about the cecum, suggestive of acute colitis, appendix is normal. on return visit now, lipase elevated at 407. Cdiff negative, other stool studies pending still. He was admitted secondary to acute pancreatitis and colitis Diagnosis: Stroke: No - Discharge Data Discharge Date: 05/18/20 Discharge Disposition: Home, Self-Care 01 Condition: Good - Referral to Home Health Primary Care Physician: Per Lopez MD - Discharge Diagnosis/Problem(s) (1) Abdominal pain SNOMED Code(s): 32305185 ICD Code: R10.9 - UNSPECIFIED ABDOMINAL PAIN Status: Acute Current Visit: Yes (2) Colitis SNOMED Code(s): 45755257 ICD Code: K52.9 - NONINFECTIVE GASTROENTERITIS AND COLITIS, UNSPECIFIED Status: Acute Current Visit: Yes (3) Pancreatitis SNOMED Code(s): 90152725 ICD Code: K85.90 - ACUTE PANCREATITIS WITHOUT NECROSIS OR INFECTION, UNSP Status: Acute Current Visit: Yes (4) Diarrhea SNOMED Code(s): 75555341 ICD Code: R19.7 - DIARRHEA, UNSPECIFIED Status: Acute Current Visit: No - Patient Summary/Data Hospital Course: Admitting Diagnoses: Abdominal pain Colitis Discharge Diagnoses Colitis Gastroenteritis Adan was admitted with abdominal pain and found to have colitis on CT scan. He was admitted, treated with IVF abx, Cipro and Flagyl, bowel rest and IVFs. He slowly improved and starting taking CL diet yesterday. Today pain is much better. Stool studies were obtained in ED, which were negative for Cdiff, Shiga and Giardia. ESR normal on admission, CRP elevated at 29. He will be discharged home today feeling much improved and tolerating bland soft diet. Mother at bedside and counseled on diet at home, monitoring for worsening symptoms and GI follow up arranged due to history of some chronic abdominal pain and diarrhea. Will also follow up with PCP to insure he is continuing to improve. He will finish 7 more days of Cipro and Flagyl, to equal 10 day course. Tramadol 5 tabs given for pain PRN as well as 2 weeks of Nexium. he is to return to the ED in abdominal pain worsens, fever returns or other concerns should arise. - Patient Instructions Diet: GI Soft/Low Residue/Low Fiber (BRAT diet) Activity: As Tolerated, No Strenuous Activities Showering/Bathing: May Shower Notify Provider of: Fever, Increased Pain, Swelling and Redness, Drainage, Nausea and/or Vomiting Other/Special Instructions: ER provided prescription for Ciproflxacin and Flagyl for 7 days, this is enough medications, now new prescription is needed. - Discharge Plan *PRESCRIPTION DRUG MONITORING PROGRAM REVIEWED*: Not Applicable *COPY OF PRESCRIPTION DRUG MONITORING REPORT IN PATIENT ROQUE: Not Applicable Prescriptions/Med Rec: Esomeprazole [NexIUM] 20 mg PO ACBREAKFAST #14 tab traMADol [Ultram] 50 mg PO Q8H PRN #5 tablet PRN Reason: Pain Home Medications: Home Meds Melatonin 5 mg PO BEDTIME 09/10/19 [History] Ciprofloxacin [Ciprofloxacin HCl] 500 mg PO BID #14 tab 05/14/20 [Rx] metroNIDAZOLE [Flagyl] 500 mg PO Q8H #21 tab 05/14/20 [Rx] Esomeprazole [NexIUM] 20 mg PO ACBREAKFAST #14 tab 05/18/20 [Rx] traMADol [Ultram] 50 mg PO Q8H PRN #5 tablet 05/18/20 [Rx] Oxygen Therapy Mode: Room Air Patient Handouts: Acute Pancreatitis, [id number], Food Choices to Help Relieve Diarrhea, Adult, Tramadol tablets, Colitis, Esomeprazole capsules, [place] Diet Referrals: Lazaro Saha MD [Ordering Only Provider] - 06/03/20 11:00 am Per Lopez MD [Primary Care Provider] - 05/26/20 1:45 pm (Arrive 15 minutes early with a photo ID, insrance card, and a mask. ) - Discharge Summary/Plan Comment DC Time >30 min.: No - Patient Data Vitals - Most Recent: Last Vital Signs Temp 99.2 F 05/18/20 11:24 Pulse 68 05/18/20 11:24 Resp 18 05/18/20 11:24 BP 146/87 H 05/18/20 11:24 Pulse Ox 92 L 05/18/20 11:24 Weight - Most Recent: 78.8 kg I&O - Last 24 hours: Intake & Output 05/17/20 05/18/20 05/18/20 22:59 06:59 14:59 Intake Total 3182 700 10 Output Total 2300 Balance 882 700 10 Lab Results - Last 24 hrs: Laboratory Results - last 24 hr 05/18/20 05/18/20 Range/Units 05:37 05:37 WBC 9.16 (4.0-11.0) K/uL RBC 4.80 (4.50-5.90) M/uL Hgb 13.6 (13.0-17.0) g/dL Hct 39.3 (38.0-50.0) % MCV 81.9 (80.0-98.0) fL MCH 28.3 (27.0-32.0) pg MCHC 34.6 (31.0-37.0) g/dL RDW Std Deviation 39.7 (28.0-62.0) fl RDW Coeff of Senia 13 (11.0-15.0) % Plt Count 198 (150-400) K/uL MPV 9.90 (7.40-12.00) fL Neut % (Auto) 61.7 (48.0-80.0) % Lymph % (Auto) 22.9 (16.0-40.0) % [place] % (Auto) 10.9 (0.0-15.0) % Eos % (Auto) 4.3 (0.0-7.0) % Baso % (Auto) 0.2 (0.0-1.5) % Neut # (Auto) 5.7 (1.4-5.7) K/uL Lymph # (Auto) 2.1 (0.6-2.4) K/uL [place] # (Auto) 1.0 H (0.0-0.8) K/uL Eos # (Auto) 0.4 (0.0-0.7) K/uL Baso # (Auto) 0.0 (0.0-0.1) K/uL Nucleated RBC % 0.0 /100WBC Nucleated RBCs # 0 K/uL Sodium 141 (136-148) mmol/L Potassium 3.9 (3.5-5.1) mmol/L Chloride 105 (98-107) mmol/L Carbon Dioxide 26.5 (21.0-32.0) mmol/L BUN 6 L (7.0-18.0) mg/dL Creatinine 0.9 (0.8-1.3) mg/dL Est Cr Clr Drug Dosing 147.14 mL/min Estimated GFR (MDRD) > 60.0 ml/min Glucose 92 (74-106) mg/dL Calcium 8.8 (8.5-10.1) mg/dL Phosphorus 3.4 (2.6-4.7) mg/dL Magnesium 1.9 (1.8-2.4) mg/dL Total Bilirubin 0.6 (0.2-1.0) mg/dL AST 35 (15-37) IU/L ALT 37 (14-63) IU/L Alkaline Phosphatase 90 (46-116) U/L Total Protein 5.9 L (6.4-8.2) g/dL Albumin 2.6 L (3.4-5.0) g/dL Globulin 3.3 (2.6-4.0) g/dL Albumin/Globulin Ratio 0.8 L (0.9-1.6) DARA Results - Last 24 hrs: Microbiology 05/17/20 00:34 Aerobic Blood Culture - Preliminary Blood - Venous - Lab Draw NO GROWTH AFTER 1 DAY Anaerobic Blood Culture - Final 05/17/20 00:26 Aerobic Blood Culture - Preliminary Blood - Venous NO GROWTH AFTER 1 DAY Anaerobic Blood Culture - Preliminary NO GROWTH AFTER 1 DAY Med Orders - Current: Current Medications Albuterol/Ipratropium (Duoneb 3.0-0.5 Mg/3 Ml) 3 ml NEB Q4HRRT PRN PRN Reason: Shortness Of Breath/wheezing Ciprofloxacin (Ciprofloxacin Hcl) 500 mg PO BID WAN Metronidazole 500 mg/ Premix 100 mls @ 100 mls/hr IV Q8H WAN Last Admin: 05/18/20 08:55 Dose: 100 mls/hr Documented by: Pantoprazole Sodium 40 mg/ (Sodium Chloride) 10 mls @ 300 mls/hr IV DAILY WAN Last Admin: 05/18/20 08:51 Dose: 300 mls/hr Documented by: Ondansetron HCl (Zofran) 4 mg IVPUSH Q4H PRN PRN Reason: Nausea/Vomiting Last Admin: 05/16/20 11:11 Dose: 4 mg Documented by: Promethazine HCl (Phenergan) 25 mg IM Q6H PRN PRN Reason: Nausea Last Admin: 05/16/20 21:03 Dose: 25 mg Documented by: Discontinued Medications Acetaminophen (Tylenol Extra Strength) 500 mg PO ONETIME ONE Stop: 05/16/20 04:35 Last Admin: 05/16/20 04:46 Dose: 500 mg Documented by: Dicyclomine HCl (Bentyl) 20 mg PO ONETIME ONE Stop: 05/15/20 22:13 Last Admin: 05/15/20 22:15 Dose: 20 mg Documented by: Dicyclomine HCl (Bentyl) Confirm Administered Dose 20 mg .ROUTE .STK-MED ONE Stop: 05/15/20 22:15 Last Admin: 05/15/20 22:22 Dose: Not Given Documented by: Dicyclomine HCl (Bentyl) 20 mg PO ONETIME ONE Stop: 05/16/20 06:11 Last Admin: 05/16/20 06:20 Dose: 20 mg Documented by: Hydromorphone HCl (Dilaudid) 1 mg IVPUSH ONETIME ONE Stop: 05/15/20 21:04 Last Admin: 05/15/20 21:14 Dose: 1 mg Documented by: Hydromorphone HCl (Dilaudid) 1 mg IVPUSH ONETIME ONE Stop: 05/15/20 22:00 Last Admin: 05/15/20 22:09 Dose: 1 mg Documented by: Hydromorphone HCl (Dilaudid) 0.5 mg IVPUSH Q4H PRN PRN Reason: Pain (severe 7-10) Stop: 05/16/20 00:14 Last Admin: 05/16/20 00:01 Dose: 0.5 mg Documented by: Hydromorphone HCl (Dilaudid) 0.5 mg IVPUSH Q2H PRN PRN Reason: Pain (severe 7-10) Last Admin: 05/16/20 09:17 Dose: 0.5 mg Documented by: Hydromorphone HCl (Dilaudid) 1 mg IVPUSH Q2H PRN PRN Reason: Pain (severe 7-10) Hydromorphone HCl (Dilaudid) 0.5 mg IVPUSH ONETIME ONE Stop: 05/16/20 09:38 Last Admin: 05/16/20 10:04 Dose: 0.5 mg Documented by: Hydromorphone HCl (Dilaudid) 0.5 mg IVPUSH Q2H PRN PRN Reason: Pain (severe 7-10) Hydromorphone HCl (Dilaudid) 0.5 mg IVPUSH Q2H PRN PRN Reason: Pain (severe 7-10) Last Admin: 05/16/20 21:10 Dose: 0.5 mg Documented by: Sodium Chloride (Normal Saline) 1,000 mls @ 999 mls/hr IV BOLUS ONE Stop: 05/15/20 21:59 Last Admin: 05/15/20 22:08 Dose: 999 mls/hr Documented by: Lactated Ringer's (Ringers, Lactated) 1,000 mls @ 999 mls/hr IV .BOLUS ONE Stop: 05/15/20 22:03 Last Admin: 05/15/20 21:13 Dose: 999 mls/hr Documented by: Lactated Ringer's (Ringers, Lactated) 1,000 mls @ 125 mls/hr IV ASDIRECTED [facility] Last Admin: 05/16/20 02:51 Dose: 125 mls/hr Documented by: Lactated Ringer's (Ringers, Lactated) 1,000 mls @ 999 mls/hr IV BOLUS ONE Stop: 05/15/20 23:53 Last Admin: 05/15/20 23:43 Dose: 999 mls/hr Documented by: Ciprofloxacin/Dextrose 400 mg/ (Premix) 200 mls @ 200 mls/hr IV Q12H [facility] Last Admin: 05/17/20 22:05 Dose: 200 mls/hr Documented by: Metronidazole 500 mg/ Premix 100 mls @ 100 mls/hr IV QID [facility] Lactated Ringer's (Ringers, Lactated) 1,000 mls @ 200 mls/hr IV Q5H [facility] Last Admin: 05/18/20 07:19 Dose: 200 mls/hr Documented by: Magnesium Sulfate 2 gm/Potassium Phosphate 20 mmole/Sodium Chloride 1,010.6667 mls @ 150 mls/hr IV ONETIME ONE Stop: 05/16/20 15:29 Last Admin: 05/16/20 10:39 Dose: 150 mls/hr Documented by: Ibuprofen (Motrin) 200 mg PO ONETIME ONE Stop: 05/16/20 23:01 Last Admin: 05/16/20 23:17 Dose: 200 mg Documented by: Ketorolac Tromethamine (Toradol) 30 mg IVPUSH ONETIME ONE Stop: 05/16/20 15:25 Last Admin: 05/16/20 15:40 Dose: 30 mg Documented by: Ketorolac Tromethamine (Toradol) 30 mg IVPUSH Q6H [facility] Stop: 05/18/20 05:46 Ketorolac Tromethamine (Toradol) 30 mg IVPUSH Q6H PRN PRN Reason: Pain Stop: 05/18/20 05:46 Last Admin: 05/17/20 21:25 Dose: 30 mg Documented by: Lorazepam (Ativan) 0.5 mg IVPUSH ONETIME ONE Stop: 05/17/20 02:25 Last Admin: 05/17/20 03:35 Dose: 0.5 mg Documented by: Lorazepam (Ativan) 0.5 mg IVPUSH ONETIME ONE Stop: 05/17/20 22:39 Last Admin: 05/17/20 23:11 Dose: 0.5 mg Documented by: Ondansetron HCl (Zofran) 4 mg IVPUSH ONETIME ONE Stop: 05/15/20 21:04 Last Admin: 05/15/20 21:13 Dose: 4 mg Documented by: Pantoprazole Sodium (Protonix Iv) 40 mg IV DAILY [facility] Last Admin: 05/17/20 11:20 Dose: Not Given Documented by: Promethazine HCl (Phenergan) 12.5 mg IM Q6H PRN PRN Reason: Nausea Last Admin: 05/16/20 12:55 Dose: 12.5 mg Documented by: - Exam General: Reports: Alert, Oriented, Cooperative, No Acute Distress Lungs: Reports: Clear to Auscultation, Normal Respiratory Effort Cardiovascular: Reports: Regular Rate, Regular Rhythm GI/Abdominal Exam: Normal Bowel Sounds, Soft, Tender (scant tenderness to LLQ, much improved since admission.) Extremities: Normal Inspection, Normal Range of Motion, Non-Tender, No Pedal Edema Neurological: Reports: No New Focal Deficit Psy/Mental Status: Reports: Alert, Normal Affect, Normal Mood
== END 2020-05-18 11:45 | disposition home or self-care (01) | DRG 249 ==
LOC: MW.ED 20:45 → MW.MS 22:22 → OBSVTOIN 05-16 11:31 → MW.MS 05-16 11:32
PROVIDERS: ADMIT Student in an Organized Health Care Education/Training Program; ATTEND Student in an Organized Health Care Education/Training Program
DX: K52.9 Noninfective gastroenteritis and colitis, unspecified (principal); K85.90 Acute pancreatitis without necrosis or infection, unspecified; F17.290 Nicotine dependence, other tobacco product, uncomplicated; Z91.09 Other allergy status, other than to drugs and biological substances; Z79.899 Other long term (current) drug therapy
CPT/HCPCS: 36415; 76705; 76705-26; 80053; 80061; 83690; 83735; 84100; 85025; 85652; 86140; 87040; 96361; 96365; 96366; 96374; 96375; 96376; 99284; 99285-25; A9270-GY; C9113; G0378; J0744; J1170; J1885; J2060; J2405; J2550; J3475; J3490; J7030; J7050; J7120

== ENCOUNTER 2021-01-29 01:01 | Emergency (ER) | payer BC ==
--- NOTE | 2021-01-29 02:18 | CT ---
INDICATION: Headache for 3hours, started post workout TECHNIQUE: CT Head without i.v. contrast. Coronal and sagittal reformats were obtained. COMPARISON: None FINDINGS: CSF space: The ventricles are normal for age. Brain: No evidence of mass, acute infarction or hemorrhage is seen. No mass-effect or midline shift is seen. The brain parenchyma is otherwise normal in appearance with preservation of the clifford-white matter junction. There is an incidental CSF density lesion along the posterior left vertex, abutting the falx. This is most likely an incidental arachnoid cyst measuring 2.8 x 1.5 cm. Calvarium: The visualized paranasal sinuses are well aerated. The mastoid air cells are clear. The visualized orbits are grossly unremarkable. The calvarium is unremarkable in appearance with no fractures identified. IMPRESSION: 1. No evidence of acute infarction, intracranial hemorrhage, or mass-effect seen. Dictated by Jhon aTbares MD @ 01/29/2021 2:17:27 AM Please note that all CT scans at this facility use dose modulation, iterative reconstruction, and/or weight-based dosing when appropriate to reduce radiation dose to as low as reasonably achievable. Dictated by: Jhon Tabares MD @ 01/29/2021 02:17:30 (Electronically Signed)
--- NOTE | 2021-01-29 02:59 | EDM.PDOC ---
ED HPI GENERAL MEDICAL PROBLEM - General Chief Complaint: Headache Stated Complaint: HEADACHE Time Seen by Provider: 01/29/21 01:16 - History of Present Illness INITIAL COMMENTS - FREE TEXT/NARRATIVE: HISTORY AND PHYSICAL: History of present illness: Is a 20-year-old gentleman who presents ER today secondary to a headache that started earlier this evening. Patient reports that he was working out doing leg lifts and was straining during the time started experiencing severe headache. Patient reports that he has had 8 headaches in the past but never 1 that lasted as long as when he had today. Patient reports that he went home and was still having his headache and took some acetaminophen. Due to the persistent nature of the headache he came to the ED for further evaluation. Patient reports that by the time he came the ED the headache is significantly improved. Patient denies any recent fevers, shakes, chills, nausea, vomiting, diarrhea, dysuria, frequency, urgency, chest pain, shortness of breath. Patient denies any weakness to his upper or lower extremities. Patient denies any change in hearing or vision. Mother reports no change in facial asymmetry or slurring of speech. Patient has no family history of aneurysms or intracranial pathologies in the past. 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 While in the ED, the patient reports that his headache is significantly improved. Patient reports that the headache started in his posterior occiput. Review of systems: As per history of present illness and below otherwise all systems reviewed and negative. Past medical history: As per history of present illness and as reviewed below otherwise noncontributory. Surgical history: As per history of present illness and as reviewed below otherwise noncontributory. Social history: No reported history of drug or alcohol abuse. Family history: As per history of present illness and as reviewed below otherwise noncontr ibutory. Physical exam: This patient was seen and evaluated during the 2019 SARS-CoV-2 novel coronavirus pandemic period. Community viral transmission is ongoing at time of this encounter and the emergency department is operating under pandemic response procedures. Constitutional: Patient is oriented to person, place, and time. Appears well- developed and well-nourished. No distress. HEENT: Moist mucous membranes Head: Normocephalic and atraumatic. Neck supple, no nuchal rigidity, no photophobia, no Kernig's sign or Brudzinski sign, patient does not present with signs or symptoms of be consistent with meningitis. Eyes: Right eye exhibits no discharge. Left eye exhibits no discharge. No scleral icterus Neck: Normal range of motion. No tracheal deviation present. Cardiovascular: Normal rate and regular rhythm. Pulmonary: Effort normal, no respiratory distress. Abdominal: No distention Musculoskeletal: Normal range of motion Neurologic: Alert and oriented to person, place and time. Skin: Pony, warm and dry. Psychiatric: Normal mood and affect. Behavior is normal. Judgment and thought content normal. Nursing note and vital signs have been reviewed Neuro: A&Ox3. Cranial nerves II-XII grossly intact, 5/5 strength to bilateral upper and lower extremities, sensation intact to bilateral upper and lower extremities, no nystagmus, PERRLA, EOMI, normal speech, gait normal Diagnostics: CT head without contrast negative for acute pathology. Therapeutics: Patient reported he did not need anything for his headache. No analgesics given Assessment and plan: 20-year-old who presents ER today secondary to severe headache that started while he was doing exercises. CT scan obtained to rule out aneurysm. CT scan was negative. I discussed with the patient and his mom regarding the limitations of a CT scan to rule out aneurysms and that in order to get close to 100% that we would need a spinal tap. At this time, the patient reports that his headache is significantly improved and does not feel that a spinal tap is warranted and patient does not wish to have that at this time. I have encouraged the patient to return to the ED if his headache should return and we would do a spinal tap on him at that time. Etiology of the headache at this time is unclear however the CT scan, although has not completely ruled out, has decreased the likelihood of this being an aneurysm. Patient does not have any signs or symptoms of be consistent with meningitis. Patient will be discharged home with instructions to take acetaminophen and ibuprofen as needed for headache. Reassessment at the time of disposition demonstrates that the patient is in no acute distress. The patient has remained stable throughout the entire ED visit and is without objective evidence for acute process requiring urgent intervention or hospitalization. The patient is stable for discharge, counseling is provided as documented above, discussed symptomatic treatment and specific conditions for return. I have spoken with the patient/caregiver and discussed todays findings, in addition to providing specific details for the plan of care. Questions are answered and there is agreement with the plan. Definitive disposition and diagnosis as appropriate pending reevaluation and review of above. headache Pain Score (Numeric/FACES): 2 - Related Data Allergies Allergy/AdvReac Type Severity Reaction Status Date / Time mold Allergy Hives Verified 01/29/21 01:13 pollen extracts Allergy Hives Verified 01/29/21 01:13 cats Allergy Hives Uncoded 05/17/20 08:36 dogs Allergy Hives Uncoded 05/17/20 08:36 Home Meds: Home Meds . [No Known Home Meds] 01/29/21 [History] Past Medical History - Past Health History Medical/Surgical History: Denies Medical/Surgical History HEENT History: Reports: None Cardiovascular History: Reports: None Respiratory History: Reports: None Gastrointestinal History: Reports: None Other Gastrointestinal History: colitis Genitourinary History: Reports: None Musculoskeletal History: Reports: None Neurological History: Reports: None Psychiatric History: Reports: None Endocrine/Metabolic History: Reports: None Oncologic (Cancer) History: Reports: None Dermatologic History: Reports: None - Infectious Disease History Infectious Disease History: Reports: None - Past Surgical History HEENT Surgical History: Reports: Naso-Sinus Surgery, Tonsillectomy Social & Family History - Family History Family Medical History: No Pertinent Family History - Caffeine Use Caffeine Use: Reports: None - Recreational Drug Use Recreational Drug Use: No - Living Situation & Occupation Living situation: Reports: with Family ED ROS GENERAL - Review of Systems Review Of Systems: See Below ED EXAM, GENERAL - Physical Exam Exam: See Below Course - Vital Signs Last Recorded V/S: Last Vital Signs Temp 98.1 F 01/29/21 01:14 Pulse 93 01/29/21 01:14 Resp 18 01/29/21 01:14 BP 148/88 H 01/29/21 01:14 Pulse Ox 97 01/29/21 01:14 Departure - Departure Time of Disposition: 02:56 Disposition: Home, Self-Care 01 Condition: Good Clinical Impression: Headache - Discharge Information Instructions: General Headache Without Cause, [id number] Referrals: Per Lopez MD [Primary Care Provider] - Additional Instructions: You were seen and evaluated in the ER today secondary to headache. The CT scan of your head was normal. As we discussed, although the CT scan of your head was extremely reassuring that you do not have an aneurysm, it does not completely rule out the possibility. In order to completely rule out an aneurysm, we would need to do a spinal tap, which you have decided to hold off doing at this time. If your headache should return or if you change your mind regarding wanting a spinal tap, please return to the ER and we will reevaluate you for possible spinal tap. In the meantime, continue taking acetaminophen and ibuprofen to assist you with your headache. Please make an appointment to see your family doctor in the next 1 to 2 days for reevaluation if your headache should persist. The following information is given to patients seen in the emergency department who are being discharged to home. This information is to outline your options for follow-up care. We provide all patients seen in our emergency department with a follow-up referral. The need for follow-up, as well as the timing and circumstances, are variable depending upon the specifics of your emergency department visit. If you don't have a primary care physician on staff, we will provide you with a referral. We always advise you to contact your personal physician following an emergency department visit to inform them of the circumstance of the visit and for follow-up with them and/or the need for any referrals to a consulting specialist. The emergency department will also refer you to a specialist when appropriate. This referral assures that you have the opportunity for follow-up care with a specialist. All of these measure are taken in an effort to provide you with optimal care, which includes your follow-up. Under all circumstances we always encourage you to contact your private physician who remains a resource for coordinating your care. When calling for follow-up care, please make the office aware that this follow-up is from your recent emergency room visit. If for any reason you are refused follow-up, please contact the [facility] Emergency Department at and asked to speak to the emergency department charge nurse. Berta [facility] [address] [place] [id number] [facility] [address] [place] [id number] Sepsis Event Note (ED) - Evaluation Sepsis Screening Result: No Definite Risk - Focused Exam Vital Signs: Vital Signs Temp Pulse Resp BP Pulse Ox 01/29/21 01:14 98.1 F 93 18 148/88 H 97
[2021-01-29 03:10] VITALS: BP 140/88; PULSE 88
== END 2021-01-29 03:07 | disposition home or self-care (01) ==
LOC: MW.ED 01:01
DX: R51.9 Headache, unspecified (principal); Z91.048 Other nonmedicinal substance allergy status
CPT/HCPCS: 70450; 70450-26; 99283; 99284-25